=== PATIENT | female | born 1940 | race Caucasian/White ===

== ENCOUNTER 2024-03-18 08:16 | Day surgery (SDC) | payer MEDICARE, OTHER, SELFPAY ==
[2024-03-18] VITALS (9 sets, daily range): BP systolic 103–125; BP diastolic 34–107; BMI 32.3
--- NOTE | 2024-03-18 10:08 | ITS.CL.CATH ---
Medical Transcription - Catheterization
Cardiac Catheterization
Procedure Report:
CARDIAC CATHETERIZATION REPORT
Date of Procedure: 03/18/2024
Referring: Que Martinez MD
Indication: Critical aortic stenosis
HEMODYNAMIC DATA
AO: 132/60
LV: Not done
PCWP: 22
PA: 49/20
RV: 49/14
RA: 12
Oximetry: Ao 97%, PA 78%, IVC 74%, SVC 77%, cardiac output 5.7, cardiac index 3.0
LEFT VENTRICULOGRAPHY: Not performed
CORONARY ANGIOGRAPHY
Dominance: Right
Left Main: Normal
LAD: Normal
Circumflex: Normal
RCA: Normal dominant vessel
Closure Device: None-the procedure was performed via the right radial artery and right femoral vein. The Fabricio's test was normal prior to the procedure.
Radiation dose (mGy): 270
DAP (cm2.Gy): 24.5
Fluoroscopy time: 8.8 minutes
CONCLUSIONS:
1. Elevated left heart filling pressures with mild to moderate pulmonary hypertension
2. Normal coronary arteries
RECOMMENDATIONS: Proceed with TAVR evaluation for critical aortic stenosis (mean gradient by echo 71 mmHg)
Copy to: Que Martinez MD, Radha Malloy MD
Musa Santiago MD, [facility], [facility]
[2024-03-18] MEDS: NSS 1000 IV (11:15)
--- NOTE | 2024-03-18 15:32 | CONSULT.STRU ---
Consultation
-
Date/Time Consultation Requested: 03/18/2024
Date/Time Consultation Performed: 03/18/2024
Requesting Provider: Musa Santiago MD
Performing Provider: LEONARD Gonsales
Reason for Consultation: Aortic stenosis/ TAVR evaluation
Patient History
Physicians
Family Physician: Gama
Outpatient Wall And Floor Tiler: Jose Reed
Primary Wall And Floor Tiler: Belia
History of Present Illness
Mrs. Beckford is a very pleasant 83yo female with known history of aortic stenosis that has now progressed to the severe range. Symptoms are difficult to illicit as she leads a very sedentary life. She has arthritis in her left knee and walks with
a crutch. She denies progressive CABALLERO, PND, orthopnea, palpitations, near syncope or lightheadedness. Her most recent echocardiogram shows aortic valves leaflets are thickened and severely restricted consistent with severe aortic stenosis with a mean
gradient of 55 mmHg, mild aortic insufficiency. Cardiac cath today with elevated left heart filling pressures with mild to moderate pulmonary hypertension. Normal coronary arteries
Reviewed the pathophysiology of aortic stenosis with the patient. Explained the treatment options of SAVR and TAVR. Explained the TAVR evaluation process including follow up BMP, CT TAVR scan, CT surgery consult and Heart Team discussion. Provided
with script for BMP next week, script and appointment for CT TAVR, Consult appointment with Dr. Grey and a copy of the TAVR education booklet with contact information. Allowed for and answered questions.
Past Medical History
Past Medical History: HTN, Valvular Disease and Other (Arthritis, Obesity)
Past Surgical History
Past Surgical History: (x2) and Orthopedic (knee surgeries)
Dental History
Regular Dental Care: Dr. Daren Chawla ([place], [place])
Family History
Mother: at Age (75yo, emphysema)
Father: at Age (89yo, unknown cause)
Social History
Alcohol: None
Drug: None
Tobacco: Non-Smoker
Personal: Single
Living: Alone
Employment: Retired (teacher)
Allergies
Allergy/AdvReac Type Severity Reaction Status Date / Time
No Known Allergies Allergy Verified 03/18/24 08:51
Home Medications
�Medication �Instructions �Recorded �Confirmed �Type
aspirin 81 mg chewable tablet 81 mg PO DAILY 03/18/24 03/18/24 History
losartan 50 mg-hydrochlorothiazide 1 tab PO DAILY 03/18/24 03/18/24 History
12.5 mg tablet
STS%
STS %: 3.1%
Review of Systems
-
History Source: Patient
General: Reports No Symptoms
HEENT: Reports No Symptoms
Respiratory: Reports No Symptoms
Cardiac: Reports No Symptoms
Abdomen/GI: Reports No Symptoms
: Reports Incontinence (receives Botox treatments)
Musculoskeletal: Reports Joint Pain (arthritis, knee surgery)
Skin: Reports No Symptoms
Neurological: Reports No Symptoms; Denies CVA, TIA, Headaches or Syncope
Vascular: Reports No Symptoms
Physical Exam
Vital Signs
Temp 97.0 F 03/18/24 08:48
Temp route: Temporal 03/18/24 08:48
Pulse 66 03/18/24 12:45
Resp Rate 23 03/18/24 12:45
Blood pressure 115/34 03/18/24 12:00
Blood pressure extremity used: Left upper arm 03/18/24 08:39
Position: Lying 03/18/24 08:39
MAP (cuff-Van Monitor) 52 03/18/24 12:00
SaO2 98 03/18/24 13:00
Oxygen Mode of Delivery Room air 03/18/24 13:00
Can the patient verbally communicate their pain? Yes 03/18/24 13:00
Actual Weight 85.275 kg 03/18/24 08:30
Body Mass Index (BMI) 32.3 03/18/24 08:30
Labs
03/11/2024:
BUN/Creat: 17/0.79
GFR: 74
H/H: 12.0/36.3
Diagnostic Studies
Echocardiogram 03/07/2024
CONCLUSIONS
Normal chamber sizes
Normal right and left ventricular systolic function
Severe aortic stenosis. Moderate aortic insufficiency
Mild elevation the right ventricular systolic pressure
Indications:
Nonrheumatic aortic (valve) stenosis with insufficiency
Rhythm: Sinus
Portable Study:
Technical Quality: Fair to poor
Contrast: None
BP: 120 / 70
PROCEDURE
A complete Transthoracic Echocardiogram was performed utilizing two-dimensional
evaluation with color flow and spectral Doppler analysis.
FINDINGS
Left Ventricle
Normal size systolic function estimated ejection fraction 65-70%
Right Ventricle
Normal size and systolic function
Left Atrium
Normal size
Right Atrium
Normal size
Mitral Valve
Normal mitral valve
Aortic Valve
Aortic valves leaflets are thickened and severely restricted consistent with
severe aortic stenosis with a mean gradient of 55 mmHg,, mild aortic
insufficiency
Tricuspid Valve
Normal tricuspid valve trace to mild tricuspid regurgitation right ventricular
systolic pressure mildly elevated at 36 mmHg
Pulmonic Valve
Pulmonic valve not well visualized
Pericardium\\Pleura
No pericardial effusion
Aorta
Normal aortic root size
Other Finding
Inter atrial septum intact inferior vena cava normal size greater than 50%
respiratory variation
MEASUREMENTS (Male / Female) Normal Values
2D ECHO
LV Diastolic Diameter PLAX 4.2 cm 4.2 - 5.9 / 3.9 - 5.3 cm
LV Systolic Diameter PLAX 2.9 cm
IVS Diastolic Thickness 0.8 cm 0.6 - 1.0 / 0.6 - 0.9 cm
LVPW Diastolic Thickness 0.8 cm 0.6 - 1.0 / 0.6 - 0.9 cm
LV Relative Wall Thickness 0.4
RV Internal Dim ED PLAX 2.9 cm
LVOT Diameter 2.0 cm
M-MODE
Aortic Root Diameter MM 3.2 cm
LA Systolic Diameter MM 4.0 cm
LA Ao Ratio MM 1.2
AV Cusp Separation MM 1.0 cm
DOPPLER
AV Peak Velocity 455.6 cm/s
AV Peak Gradient 83.0 mmHg
AV Mean Gradient 55.5 mmHg
AV Velocity Time Integral 119.6 cm
LVOT Peak Velocity 134.6 cm/s
LVOT Peak Gradient 7.2 mmHg
LVOT Velocity Time Integral 36.1 cm
LVOT Stroke Volume 114.6 cm3
LVOT Stroke Volume Index 57.5 ml/m2 empty
LVOT Cardiac Index 3161.2 cm3/min
AV Area Cont Eq vti 1.0 cm2
AV Area Cont Eq pk 0.9 cm2
Mitral E Point Velocity 109.1 cm/s
Mitral A Point Velocity 71.9 cm/s
Mitral E to A Ratio 1.5
TR Peak Velocity 286.3 cm/s
TR Peak Gradient 32.8 mmHg
Right Ventricular Systolic Press 35.8 mmHg
Cardiac Catheterization 03/18/2024
HEMODYNAMIC DATA
AO: 132/60
LV: Not done
PCWP: 22
PA: 49/20
RV: 49/14
RA: 12
Oximetry: Ao 97%, PA 78%, IVC 74%, SVC 77%, cardiac output 5.7, cardiac index 3.0
LEFT VENTRICULOGRAPHY: Not performed
CORONARY ANGIOGRAPHY
Dominance: Right
Left Main: Normal
LAD: Normal
Circumflex: Normal
RCA: Normal dominant vessel
Closure Device: None-the procedure was performed via the right radial artery and right femoral vein. The Fabricio's test was normal prior to the procedure.
Radiation dose (mGy): 270
DAP (cm2.Gy): 24.5
Fluoroscopy time: 8.8 minutes
CONCLUSIONS:
1. Elevated left heart filling pressures with mild to moderate pulmonary hypertension
2. Normal coronary arteries
RECOMMENDATIONS: Proceed with TAVR evaluation for critical aortic stenosis (mean gradient by echo 71 mmHg)
Exam
General: Well Developed, Well Nourished, No Apparent Distress and Comfortable
HEENT: Normocephalic and Moist Mucous Membranes
Neck: Trachea Midline
Respiratory: Clear; Negative Wheezes, Crackles or Rhonchi
Cardiac: S1/S2, Regular Rhythm and Murmur (Grade III/ systolic murmur)
GI: Soft, Non Tender, Non Distended and Normal Bowel Sounds
Rectal: Deferred by Provider
Skin: Warm and Dry
Neuro: AO x 3 and Nonfocal/Grossly Intact
Extremities: Lower Level Edema (trace bilateral LE) and Pulses (+2 dp pulses bilaterally)
Lymph: No Lymphadenopathy
Psych: Calm
Assessment / Plan
-
Procedure Type:�Isolated AVR
PERIOPERATIVE OUTCOME ESTIMATE %
Operative Mortality 3.1%
Morbidity & Mortality 7.46%
Stroke 1.26%
Renal Failure 1.37%
Reoperation 2.39%
Prolonged Ventilation 3.69%
Deep Sternal Wound Infection 0.059%
Long Hospital Stay (>14 days) 3.7%
Short Hospital Stay (<6 days)* 37.2%
Severe Aortic stenosis:
��������������� Continue evaluation for TAVR
��������������� BMP 03/24/2024 at [facility]
��������������� CT TAVR scan 03/28/2024 0945 at
��������������� CT surgery consult with Dr. Grey 04/08/2024
��������������� Heart team discussion at [facility]
Dental Clearance (Dr. Chawla )
Data Reviewed
-
EKG: Report Reviewed by me
Used Car Salesperson: Discussed with Physician
Echo: Discussed with Physician
Labs: Labs Reviewed by me
Old Records: Reviewed (echocardiogram, Cardiology office notes)
Total Time Spent with Patient (in minutes): 30
== END 2024-03-18 13:20 | disposition home or self-care (01) ==
LOC: CATH 08:16
PROVIDERS: ATTENDING PHYSICIAN Internal Medicine Cardiovascular Disease; FAMILY PHYSICIAN Internal Medicine; OTHER PHYSICIAN Internal Medicine Cardiovascular Disease
DX: I35.0 Nonrheumatic aortic (valve) stenosis (principal); I27.20 Pulmonary hypertension, unspecified; R06.02 Shortness of breath; I10 Essential (primary) hypertension; E66.01 Morbid (severe) obesity due to excess calories; Z68.41 Body mass index [BMI] 40.0-44.9, adult; Z79.82 Long term (current) use of aspirin
CPT/HCPCS: 93456; C1894; Q9967

== ENCOUNTER → 2024-03-28 09:11 | Outpatient (REF) | payer MEDICARE, OTHER, SELFPAY | LOC: RAD 09:11 | PROVIDERS: ATTENDING PHYSICIAN Nurse Practitioner Adult Health; FAMILY PHYSICIAN Internal Medicine | DX: I35.0 Nonrheumatic aortic (valve) stenosis (principal) | CPT/HCPCS: 74174; 75572; Q9967 ==

== ENCOUNTER 2024-04-17 09:12 | Inpatient (IN) | payer MEDICARE, OTHER, SELFPAY ==
[2024-04-10 12:03] VITALS: BMI 32.5
[2024-04-10 13:03] LABS: Urine Albumin Negative (Neg - Trace); Urine Bilirubin Negative (Negative); Urine Character Slightly Cloudy (Clear); Urine Color Yellow; Urine Glucose Negative (Negative); Urine Ketone Negative (Negative); Urine Leukocyte 1+ (Negative); Urine Nitrite Negative (Negative); Urine Occult Blood Negative (Negative); Urine Urobilinogen Negative (Neg - 1+)
[2024-04-10 13:13] LABS: % Basophils 1.3 % (0-2); % Eosinophils 8.5 % (0-6); % Immature Granulocytes 0.3 % (0-0.5); % Lymphocytes 26.3 % (20.5-51.1); % Monocytes 6.3 % (1.7-9.3); % Neutrophils 57.3 % (42.2-75.2); Absolute Basophils 0.1 10^3/uL (0-0.2); Absolute Eosinophils 0.6 10^3/uL (0-0.7); Absolute Lymphocytes 1.8 10^3/uL (1.2-3.4); Absolute Monocytes 0.4 10^3/uL (0.1-0.6); Hematocrit 35.1 % (37.0-47.0); Hemoglobin 12.3 g/dL (12.0-16.0); Mean Corpuscular Hgb 31.9 pg (27.0-31.0); Mean Corpuscular Volume 90.9 fL (81.0-99.0); Nucleated Red Blood Cells % 0 %; Platelet Count 252 10^3/uL (130-400); Red Blood Cell Count 3.86 10^6/uL (4.20-5.40); Red Cell Dist. Width 13.6 % (11.5-14.5)
[2024-04-10 13:14] LABS: APTT 26.3 Sec (23.4-35.0); INR 1.06; PT 13.8 Sec (11.4-14.6)
[2024-04-10 13:18] LABS: ALT (SGPT) 11 U/L (0-35); AST (SGOT) 24 U/L (14-36); Albumin 4.1 g/dl (3.5-5.0); Alkaline Phosphatase 71 U/L (38-126); Blood Urea Nitrogen 18 mg/dl (7-17); Carbon Dioxide 27 mmol/L (22-30); Chloride 105 mmol/L (98-107); Direct Bilirubin 0.2 mg/dl (0.0-0.4); Estimated Creatinine Clearance 48 ml/min; Glucose 91 mg/dl (70-99); Potassium 4.1 mmol/L (3.5-5.1); Sodium 138 mmol/L (135-145); Total Protein 6.8 g/dl (6.3-8.2); eGFR > 60.00
[2024-04-10 13:20] LABS: Urine Bacteria Moderate (Negative); Urine Red Blood Cell 0-2 /HPF (0-2); Urine White Cell 30-40 /HPF (0-5)
[2024-04-10 13:26] LABS: NT-proBNP 256 pg/ml
[2024-04-10 14:13] LABS: Glycohemoglobin (HgbA1c) 5.3 % (4.0-5.6)
--- NOTE | 2024-04-10 14:26 | CM ---
Chart reviewed. Met with the patient and her brother and sister in law in [facility]. Reviewed preoperative and postoperative instructions and restrictions. Gave patient 2 soaps, along with showering guidelines. Patient is agreeable to a home visit
by CT Transitional RN. Patient is independent of ADLS, lives alone in a [address] [facility], [address] [facility], ambulates with a crutch and also has a RW at home that she does not use. Patient isn't sure if she will be going to her son's house in [place] or
home with her daughter who will be visiting from [place]. Plan is for the patient to return home with her daughter or to her son's house with CT Transitional RN. CM to follow
[2024-04-17] VITALS (27 sets, daily range): BP systolic 72–144; BP diastolic 34–75; BMI 30.7
--- NOTE | 2024-04-17 10:43 | W.CVOR.SURPR ---
CVOR Surgeon Immed Pre Op
-
I have examined this patient prior to performance of the scheduled procedure.
The patient's condition is unchanged from the time of the dictated/written History and
Physical and the patient is able to undergo the scheduled procedure.
TF TAVR
Full Rescue
[2024-04-17] MEDS: ANCEF 10 IV ×2 (11:04→15:49)
[2024-04-17 12:50] LABS: ACT-LR - POC > 397 Seconds (116-155)
--- NOTE | 2024-04-17 13:17 | W.PN.CT.SURG ---
CT Surgery Operative Note
-
OPERATIVE REPORT
Preoperative Diagnosis: Severe aortic valve stenosis, symptomatic
Postoperative Diagnosis: Same
Procedure(s) Performed: Right trans femoral TAVR with a 26 mm mm Medtronic Evolut FX device with balloon valvuloplasty of the aortic valve
Date of Procedure: 04/17/2024
Comorbidities:
1. Severe symptomatic aortic stenosis
2. Obese
3. Hypertension
Cardiac Surgeon: Stewart Joyce MD, MS
Delivery Table Feeder: Everardo Santiago MD
Anesthesia: Conscious Sedation, Local
EBL: 100cc
Products: none
Implant: Medtronic Evolut FX, 26 mm TAVR valve SN: [id number]
Indication(s) for Procedures: 83-year-old female with severe aortic stenosis. Symptomatic. CT-TAVR protocol revealed acceptable anatomy for a self-expanding TAVR valve. Multidisciplinary team discussion between interventional cardiology,
cardiology, and cardiac surgery all deemed TAVR valve appropriate.
Start time: 1209hrs
Deployment time: 1253hrs
End time: 1312hrs
Radiation Dose (mGy): 977.83
DAP (cm2.Gy): 76.5634
Fluoroscopy time (minutes): 18
Contrast volume (ml): 123
TAVR gradient (mmHg): 8mmHg
Heparin Dose: 6000units
Protamine Dose: 40mg
Final Valve Positioninmm:4mm
LVEPD 18mmHg
Findings: Preoperative LVEF was 60% and was 70% following TAVR without inotropic support and was actually quite hyperdynamic with a kissing ventricle. Function was overall normal without regional wall motion abnormalities or dyskinesia. The aortic
valve was well seated with only trace PVL. The patient did not require pacing postoperative however was in a bradycardic rhythm possibly heart block. Therefore the temporary pacing wire was left in place at a backup of 30 bpm. There was successful
placement of 26 mm Evolut FX TAVR valve without acute complications. Of note, her root was quite horizontal and so there is some difficulty with getting the appropriate height in the left coronary cusp side, a total of 5 recaptures/deployments were
performed at a pacing rate of 180 bpm in order to obtain a successful deployment.
Access:
1. Device -right common femoral artery, perclose x 2
2. Pigtail -left common femoral artery + 6Fr angioseal, slightly higher stick than anticipated
3. Transvenous Pacer -left common femoral vein
Description of Procedure: The patient was taken to the manager cardiac cath. Their identity and procedure to be performed were verified and they were positioned supine on the manager cardiac cath table. Induction via conscious sedation with local analgesia. The patient was
then prepped and draped from chin to thigh in a sterile fashion. A preoperative time-out was performed with all members of the team present. Using fluoroscopy, bilateral femoral heads and their margins were identified. Arterial and venous access
were done with a micropuncture needle with Seldinger technique. Test pacing revealed capture with excellent threshold. Angiography confirmed proper puncture site and femoral artery integrity. Two Per-Close devices were used on the TAVR side. An AL1
catheter was used to deliver a extrastiff wire and insertion of the working sheath. An AL1 catheter with a straight stiff wire was used to access the LV. An LVEDP was measured here. Was found to be 18. The valve was prepped and mounted on to the
device carrier. An ACT of >250 was achieved. We verified x 3 under fluoroscopy that the valve was mounted correctly with paddles in appropriate position. A 18 mm balloon was then inserted and across the [place] aortic valve and under rapid pacing at
180 bpm the balloon was then inflated with good effect for the valvoplasty. We than set our parameters to achieve a co-planar view with the pigtail positioned in the NCC. We exchanged the sheath for the inline sheath. We advanced the device with
it's in-line sheath into the descending thoracic aorta and over the arch into the root and positioned across the aortic valve. Contrast fluoroscopy was used to visualize the prosthesis across the valve. We performed a quick pre-deployment time out.
We verified positioning based on the pigtail and gentle contrast puffs. The valve was slowly deployed to just before annular contact. We paused here and verified positioning in our cusp overlap view. Due to the angulation of the aortic arch, the
left coronary cusp side was too high at approximately 0 mm and so recapture was performed. A total of 5 recaptures and deployment attempts were performed. Eventually we opted to deploy slightly deeper on the noncoronary cusp side and help that
with the valve recanting following deployment it would right itself. The pacer was turned on and we continued deployment to annular contact. At this point the valve was functioning and pacing was stopped. We slowly continued to deploy the valve
until the crowns and paddles were free from the device. The deployment device was withdrawn into the descending thoracic aorta while maintaining wire access across the valve. A transthoracic echocardiogram was performed and there was no significant
paravalvular leak and on echocardiography, the valve did not appear to be overly deep. The pigtail was re-positioned at the level of the crown of the valve and angiography revealed excellent placement and seating of the valve at the annulus. The
device was removed from the groin as we cinched down the perclose devices while maintaining wire access. There was acceptable hemostasis. The pigtail was repositioned into the descending/abdominal and runoff aortogram was performed. There was no
significant stenosis or dissection of the bilateral iliofemoral systems with excellent runoff to the SFAs. All wires were removed and perclose snugged and cut. There was acceptable hemostasis of bilateral groins.
All instrument, sponge, and needle counts were confirmed to be correct x 2 at the end of the operation. The patient was transferred to the cardiac intensive care unit in stable condition.
I, Dr. Stewart Joyce, was present, scrubbed for, and performed all critical elements of this procedure.
Stewart Joyce MD, MS
Cardiothoracic Surgeon
[facility]
This operative dictation was created using the [employer] dictation system. Please excuse any grammatical, typographical, or 'sound alike' errors
--- NOTE | 2024-04-17 13:40 | ITS.CL.TAVR ---
Balcony Worker - TAVR Report
TAVR PRocedure
Procedure Report:
TRANSCATHETER AORTIC VALVE REPLACEMENT REPORT
�
Date: 04/17/2024
Referring physician: Que Martinez MD
Operators: Musa Santiago MD, Stewart Joyce MD
�
Procedure: Conscious sedation was provided by anesthesia. Using a micropuncture technique, 6F LFV and LFA sheaths were placed. Injection into the LFA sheath was performed to confirm a common femoral artery puncture site. The puncture site was in
the high BATTERY CONTAINER FINISHING HAND. A transvenous pacemaker was placed into the RV apex with excellent thresholds. A pigtail catheter was advanced to the aortic root and low-volume injections performed to identify a co-planer angle for valve deployment. Access was then
obtained in the RFA using the micropuncture technique. Injection into the RFA sheath was performed to confirm a common femoral artery puncture site. Entry was in the mid R BATTERY CONTAINER FINISHING HAND. Heparin 3000 units was administered. At this point, two Perclose
sutures were preset using the preclose technique. We then placed an 8 [place] sheath. A 14 [place] Cook sheath was exchanged into the RFA.Heparin 3000 units was administered. The valve was crossed with an��AL 1 diagnostic catheter and a straight wire.
A double curve Lunderquist wire was advanced into the LV apex through a pigtail catheter. The 14 F sheath was removed and exchanged for a 26 mm Medtronic Evolute pro valve with in-line sheath. The valve was carefully advanced around the aortic arch
and across the valve. Placement required multiple recaptures due to the horizontal aortic root and the valve sitting on the greater curvature of the aorta. Once ideal valve positioning was confirmed, the valve was very slowly deployed with
ventricular pacing at 140�180 per minute. Following valve deployment, the patient had some unclear degree of AV block with heart rate in the 45-50 range. The result was evaluated with both aortography and echocardiography which demonstrated no
detectable AI with a gradient of 7 mmHg. The valve deployment system was removed and hemostasis achieved with the 2 Perclose sutures. Angiography of the right iliofemoral system was accomplished and showed no evidence of significant dissection or
perforation with good runoff below the femoral bifurcation. The LFA sheath was removed with a 6 [place] Angio-Seal. The pacemaker was secured in place and the patient transferred to the IVU with backup ventricular pacing.
�
Radiation
Dose (mGy): 977
DAP (cm2.Gy): 76.5
Fluoroscopy time: 18 minutes
�
�
Conclusion: Successful placement of 26mm Medtronic evolute Pro TAVR using a right percutaneous transfemoral approach. A temporary pacemaker was left in place and this patient will be at significant likelihood of requiring permanent pacemaker
placement within the next 24 hours if her rhythm does not completely return to normal
�
Musa Santiago M.D.
�
Copy : Que Martinez MD, Radha Malloy MD
�
�
�
[2024-04-17] MEDS: LEVOPHED 250 IV (14:14)
[2024-04-17 14:31] LABS: ACT-LR - POC > 397 Seconds (116-155)
--- NOTE | 2024-04-17 17:03 | ITS.CL.PACE ---
[employer] - Pacemaker Implant
Pacemaker Implant
Procedure Report:
Left Bundle Branch pacing dual chamber Permanent Pacemaker Placement:
83 yrs old woman with severe and chronic LBBB s/p TAVR and complete heart block now s/p temp wire
Indications:
Complete heart block.
Date of the Procedure: 04/17/24
Pre-Operative Diagnosis: Complete heart block.
Post-Operative Diagnosis: Complete heart block.
Procedure Performed: LEFT BUNDLE BRANCH PACING WITH DUAL CHAMBER PERMANENT PACEMAKER IMPLANTATION.
Surgeon:
Laly Mcgee MD
Anesthesia:
See anesthesia records
Detailed Description of the Procedure:
The patient was identified using hospital identification and informed consent obtained for the procedure. The risks were explained to the patient and the family including, but not limited to: Bleeding, infection, arrhythmia, stroke,
vascular/cardiac/lung puncture, surgery, pacemaker dependency/device malfunction. All questions were answered.
Anesthesia service provided sedation as reported separately. Antibiotics administered IV for risk of bacterial colonization. After obtaining informed and written consent, the patient was brought to the electrophysiology laboratory.
The initial rhythm was V paced rhythm at 60 bpm.
A timeout was performed immediately before the procedure. The left chest was prepped from the nipple to the angle of the jaw with chlorhexidine, and draped following sterile technique in usual routine.�
A surgical pause and time out was performed immediately prior to the procedure with review of her medical history, recent labs, allergies and medications with site of procedure identified and consent noted in the chart. Antibiotics pre operatively
given. All team members concurred.
The procedure site was meticulously prepared with surgical scrub and allowed to dry with no pooling. Sterile draping was applied to cover the procedure site. The image intensifier was draped with sterile bag and positioned over the patient.
The left infraclavicular region was prepped and draped in the usual sterile fashion. Local anesthesia was administered subcutaneously using 1% lidocaine / Bupivacaine. The left upper extremity venogram was done and the axillary route identified.
There was patent subclavian vein.
Following infiltration with local anesthetic, the axillary vein was accessed under fluoroscopy and the venogram guidance using the micro-puncture apparatus. The guide wires were advanced to the inferior vena cava (IVC) under flouro guidance.
A subcutaneous pocket was created with blunt dissection and use of electrocautery. Hemostasis was excellent.
Attention then was turned to the left bundle branch pacing lead. The guide wire was advanced to the RA and was advanced to the RV. The preformed curved long hemostatic peel away HIS sheath was advanced into the RV cavity. A left bundle pacing wire
was advanced into the sheath to the tip with ventricular signals noted with unipolar manner. The HIS location was identified under guidance of the flouroscopy and the pacing wire signals. The sheath with the pacing lead was moved deeper into the RV
cavity on the septum at a more inferior and distal to the HIS signals.
Once adequate signals were noted on the electrograms of the pacing lead in the sheath with W pattern signals on the RV septum, the lead was advanced and clockwise turns were done under fluoroscopic guidance. The septum was engaged and the lead was
paced intermittently after every 2-3 turns. The Impedance of the lead was measured that remained stable around 1000 Ohm. There was high threshold and poor sensing noted. The decision was made to remove the lead and relocate to another locations.
Another septal location was identified with adequate signals noted on the pacing leads and good flouroscopic location. There was sheath approximation confirmed on URDU view and the pacing lead was advanced with clockwise turns into the septal
location. The septum was successfully engaged. The lead was paced and septal pacing was noted. The sheath was placed again to the septum and the lead was advanced 2-3 turns with pacing with each advancement. The ventricular capture was monitored
throughout and the captures gradually changed from RV pacing to non-selective pacing to LBB pacing with R wave on V1.
With RBBB pattern noted on the pacing lead, it was decided to accept the location as optimal location. The long guiding sheath was cut and removed from the RV without change in lead position, impedance, sensing, or capture. The lead was sutured to
the underlying pectoralis fascia with 0-silk stitches.
The RA lead was anchored in the right atrial appendage with passive fixation using tines. There was excellent sensing, pacing, and impedance from the leads, with no diaphragmatic stimulation at 10 V output.�Bovie cautery, antibiotics, and
fluoroscopy were used.
The leads were attached to the pulse generator in standard configuration with acceptable sensing and threshold parameters. The pocket was irrigated with antibiotic solution; the pocket was inspected with no active bleeding noted. The device and the
leads were placed in the pocket.
A Tyrx pouch was placed around the device and the leads.
Deep subcutaneous tissues were closed with 3 layers of 2-0 V loc sutures; and the dermis was reopposed using a running 4-0 VLoc subcuticular suture. Sponge counts / sharp counts were appropriate.
Procedure End:
The procedure was tolerated well. Aquacel bandaged was applied. A pressure dressing was applied.
Estimated Blood loss:
5 cc
Specimens Removed:
No cultures and no specimens were obtained. No intraoperative pathology was identified.
Urine output:
None
Packs / Drains/ Tubes:
None
Instrument / Sponge Count Correct:
Yes
Complications of the Procedure:
None
Condition of Patient at Time of Transfer:
Hemodynamically stable with no neurological or vascular compromise.
Device information:�
Generator: [employer]; Model: W1DR01; Serial # [id number]�
����������� Atrial Lead: Medtronic; Model: 4574-45; Serial # [id number]�
Measured data in the right atrium was sensing of 3.1 mV, impedance of 570 ohms and threshold of 0.75 V at 0.4ms�
����������� LBB pacing lead: Medtronic; Model: 3830-69; Serial # [id number]
����������������������� Measured data on the RV lead was sensing of 20 mV, impedance of 874 ohms and threshold of 0.75 V at 0.4ms
PROGRAMMING PARAMETERS:�
Calvin parameter settings were DDDR 60-130 �
����������� Paced AV interval: 180ms
����������� Sensed AV interval: 150 ms.
����������� Rate Adaptive A-V Interval: off
Summary:
Successful implantation of MRI compatible LBB pacing Medtronic dual chamber pacemaker.
Results/Recommendations:
-Please follow up CXR�
1. Please provide patient with adequate pain control�
Instructions to be given to patient:�
- Please follow up with [facility] at [address] [place] [address] ([phone]) to get your wound checked in 2 weeks of your discharge. Then follow with
- Do not wet incision site until after it is evaluated at cardiology clinic. No baths or showers until then. Sponge baths / showers are OK but dab dry the dressing after it is wet.�
- Allow 'steri strips' to fall off on their own�
- Do not lift left elbow above shoulder, particularly with sudden jerking movements, for 1 month�
- Do not lift anything weighing more than 5 pounds with the left arm for 1 month�
- If you notice any fevers, shortness of breath, lightheadedness, chest pain, or worsening swelling in the wound site, please contact the arrhythmia clinic, contact your awning finisher, or present to the hospital for evaluation.�
Laly Mcgee MD
Electrophysiology
[2024-04-17] MEDS: TYLENOL 650 MG PO (18:09)
--- NOTE | 2024-04-17 19:13 | PTCARENOTE ---
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 Pt c/o left arm pain, given tylenol (pt adamant that she not receive anything stronger). Left anterior chest with pressure dressing, bilateral femoral sites with dry
and intact dressings, no sign of bleeding or hematoma. Pt has no desire to void, bladder scanned for 43mls only. Pt alert and oriented, neuro check unremarkable and unchanged from prior assessments. Telemetry shows ventricular paced rhythm, SBP's
102-115, norepi infusion at 1.5mcgs. Pt on bedrest until 20:00, plan for CXR tonight.
[2024-04-17] MEDS: ROXICODONE 2.5 MG PO (19:14)
--- NOTE | 2024-04-17 21:17 | PTCARENOTE ---
Pt received start of shift, HR V-paced. B/l groin sites CDI, soft, no hematoma. Neuro intact, WNL. L chest wall dressing CDI. Pt c/o pain 8/10 at L chest incision site. Pt agreeable to taking Navin 2.5mg after tylenol ineffective. After navin
administration, pain to 4/10 (See MAR). Levo infusion off @2029. Pt on 2L NC for comfort. Pt denies any CP outside of incision site, SOB, lightheadedness, or dizziness. Informed to notify RN if any changes, call rudolph within reach.
[2024-04-17] MEDS: ANCEF 5 IV (23:00)
[2024-04-18] VITALS (9 sets, daily range): BP systolic 97–133; BP diastolic 45–64; PULSE 66; O2SAT 96; BMI 31.7
[2024-04-18 03:37] LABS: Hematocrit 32.5 % (37.0-47.0); Hemoglobin 11.1 g/dL (12.0-16.0); Mean Corp Hgb Conc. 34.2 g/dL (33.0-37.0); Mean Corpuscular Hgb 32.6 pg (27.0-31.0); Mean Corpuscular Volume 95.3 fL (81.0-99.0); Mean Platelet Volume 9.9 fL (7.4-10.4); Platelet Count 165 10^3/uL (130-400); Red Blood Cell Count 3.41 10^6/uL (4.20-5.40); Red Cell Dist. Width 13.4 % (11.5-14.5); White Blood Cell Count 9.9 10^3/uL (4.8-10.8)
[2024-04-18 04:02] LABS: Blood Urea Nitrogen 20 mg/dl (7-17); Calcium 9.3 mg/dl (8.4-10.2); Carbon Dioxide 23 mmol/L (22-30); Chloride 103 mmol/L (98-107); Estimated Creatinine Clearance 43 ml/min; Glucose 121 mg/dl (70-99); Potassium 4.6 mmol/L (3.5-5.1); Sodium 132 mmol/L (135-145); eGFR > 60.00
--- NOTE | 2024-04-18 04:15 | W.PN.CT ---
Today's Communication / Plan
-
-pod #1
-no significant issues overnight
-Tylenol with low-dose Maranda for incisional pacer pain. Pressure dressing is on
-in nsr with V-pacing 60s overnight
-Echo today
-current meds (ASA, Hyzaar)
-encourage IS, OOB, ambulate
-possible d/c
Assessment / Plan
-
- Severe symptomatic - s/p Right trans femoral TAVR with a 26 mm mm Medtronic Evolut FX device with balloon valvuloplasty of the aortic valve on 04/17/24, pod #1
- Acute LBBB with CHB post TAVR - s/p successful implantation of MRI compatible LBB pacing Medtronic dual chamber pacemaker by Dr. Mcgee on 04/17/24
- HTN/HLD
- Class 1 obesity (BMI 30)
- AF
- Osteoarthritis, severe - walks with cane/crutch
- Plantar fascitis
- Botox injection for incontinence
Discussed patient care with: Nursing and Care Team
Subjective
-
Date of Service: April 18, 2024
Objective Data
-
PT 13.8 Sec (11.4-14.6) 04/10/24 12:17
INR 1.06 04/10/24 12:17
APTT 26.3 Sec (23.4-35.0) 04/10/24 12:17
Vital Signs
Vital Signs
Temp Pulse Resp BP Pulse Ox
97.8 F 66 18 92/63 95
04/17/24 23:00 04/17/24 23:15 04/17/24 23:00 04/17/24 23:00 04/17/24 23:00
CT Intake/Output/Weight
04/17/24 04/17/24 04/18/24
06:59 18:59 06:59
Intake Total 960 / 960
Output Total 375 / 375
Balance 585 / 585
SaO2: 95
Physical Exam
-
General: Awake and AOx3
Cardiovascular: Regular rate & rhythm, No Murmurs and No Rub
Respiratory: Decreased Breath Sounds
Incision: Other (groins are cdi, soft, nontender, no hematoma b/l)
Extremities: Edema +1 (2+ DPs b/l)
Data Reviewed
-
Lab Results: Results Reviewed
Medications: Active Meds Reviewed
Chest X-Ray: Report Reviewed and Image Reviewed
ECG: Report Reviewed and Image Reviewed
[2024-04-18] MEDS: ANCEF 5 IV (06:21)
[2024-04-18] MEDS: TYLENOL 650 MG PO ×2 (07:43→12:20)
--- NOTE | 2024-04-18 08:01 | W.PN.ANS.POP ---
Anesthesia Post Operative
- Anesthesia Post Op Note
Vital Signs Stable-See Nursing Note: Yes
Airway Patent: Yes
Adequate Pain Control: Yes
Change in Mental Status: No
Current Postoperative Nausea & Vomiting: No
Anesthesia Complications: No
General Anesthetic Recall: No
Unplanned Admission: No
Post Op Hydration Adequate: Yes
- -
Pt awake and alert- resting comfortably with no anesthesia related c/o at time of post op visit.
--- NOTE | 2024-04-18 08:26 | W.PN.CD ---
Today's Communication / Plan
-
echo today
post pacemaker care info for discharge
Discharge later today after echo
Impression / Plan
-
Severe symptomatic -->s/p Right trans femoral TAVR( 26 mm mm Medtronic Evolut FX) with balloon valvuloplasty of the aortic valve on 04/17/24
-echo today for discharge
CHB - s/p successful implantation of MRI compatible LBB pacing Medtronic dual chamber pacemaker by Dr. Mcgee on 04/17/24
- HTN chronic controlled continue current medications
- Class 1 obesity (BMI 30)
- AF---per record but she denies and not on any DOAC, Sinus here
Physical Exam
Vital Signs/Labs
Vital Signs
Temp Pulse Resp BP Pulse Ox
97.4 F 63 18 101/53 95
04/18/24 06:50 04/18/24 03:15 04/18/24 06:50 04/18/24 03:00 04/18/24 06:50
04/17/24 04/18/24 04/19/24
06:59 06:59 06:59
Actual Weight 76.1 kg
04/18/24 03:06
04/18/24 03:06
PT 13.8 Sec (11.4-14.6) 04/10/24 12:17
INR 1.06 04/10/24 12:17
APTT 26.3 Sec (23.4-35.0) 04/10/24 12:17
04/10/24
12:17
[id number]-Mcpsbsczreg Pept 256
Physical Exam
Constitutional: No acute distress
Cardiovascular: Rhythm & rate is regular, Pedal edema is absent, JVD pressure is normal and Systolic murmur absent
Respiratory: Respiratory effort normal, Lungs clear to auscul., Wheeze Absent, Crackles Absent and Rhonchi Absent
Other: Cath Site (RFA LFA area soft without hematoma normal pulse) and Cardiac Device Site (Pacemaker site with Aquacel dressing clean dry and intact slight tenderness but no hematoma)
Data Reviewed
-
Date of Service: April 18, 2024
EKG: Tracing Personally Visualized and interpreted (04/18/24 ko goel) and Other
[2024-04-18] MEDS: HYZAAR 50-12.5 1 TAB PO (08:30)
[2024-04-18] MEDS: LOW STRENGTH ASPIRIN 81 MG PO (08:30)
--- NOTE | 2024-04-18 10:03 | W.DCSUMMARY ---
Discharge Summary
Discharge Data
Date of Admission: 04/17/24
Date of Discharge: 04/18/24
-
Pending Results: No
Hospital Course
Primary care physician: LEISA Malloy
Outpatient senior sales consultant: Que Martinez
Inpatient consultants: [facility]
Procedures:
1. TAVR
2. Medtronic dual-chamber permanent pacemaker
Primary Diagnosis:
1. Severe aortic stenosis
Secondary Diagnoses:
1. Obesity (BMI 31.7)
2. Hypertension
3. Complete heart block
HPI: 83-year-old female was electively admitted on 04/17/2024 for TAVR procedure due to severe aortic stenosis
Hospital course: Patient underwent right trans femoral TAVR #26 mm mm Medtronic Evolut FX device with balloon valvuloplasty of the aortic valve by Drs. Stewart Joyce/Everardo Santiago. Patient developed complete heart block post deployment with new left
bundle branch block. A temporary pacing wire with VVI backup was deployed via left femoral venous sheath. The heart block persist and patient returned to lab for a Medtronic permanent pacer insertion. Patient required short-term institution of
Levophed, which was quickly weaned in IVU. Chest x-ray reported no pneumothorax and echocardiogram reported an EF of 65 to 70% with AV gradients of 13/7 and mild paravalvular AI. Patient was instructed on need to inform medical providers of tissue
aortic valve replacement and importance of prophylactic antibiotics prior to dental and invasive procedures. Patient ambulated in the [place] without difficulty. Vital signs remained stable. She is stable for discharge to home.
Home medication changes:
none
Discharge Plan
-
Patient Disposition: Home (Routine Discharge)
Discharge Diagnosis/Procedures: TF-TAVR, Pacemaker implant
Condition: Good
Diet: Low Cholesterol and 2 Gram Sodium
Activity: As tolerated
Driving Restrictions: No driving for 1 week
Bathing Restrictions: OK to Shower
Others Tests: Follow Up Echocardiogram: 05/19/2024 at 12:40pm in Dr. Martinez's office
Other Services: Cardiac Rehab
Wound Care: Please do not apply lotions, creams or powders to groin areas. Please monitor for increased pain, swelling, redness or drainage. Please notify your doctor if any occur.
Specialty Instructions: Weigh Daily- Call MD for wt gain/loss 3 lbs overnight/5 lbs in 1 week
Stand Alone Forms: DC Inst - Implanted Device
Referrals:
CT Transitional Care Nurse [Outside] - in one to two days
Rashel Saxena MD [Active] - 05/16/24 1:40 pm
Radha Malloy MD [Family Provider] - in four to six weeks (Please mke an appointment in four to six weeks. )
Prescriptions:
New
acetaminophen 325 mg Tablet
650 mg PO Q4HPRN PRN (Reason: CAMPBELL, mild pain, or fever >101F) Qty: 0 0RF
oxycodone 5 mg Tablet
2.5 mg PO Q4HPRN PRN (Reason: severe pain) Qty: 10 0RF
Continued
aspirin 81 mg Tablet,Chewable
81 mg PO DAILY Qty: 0 0RF
losartan-hydrochlorothiazide 50-12.5 mg Tablet
1 tab PO DAILY Qty: 0 0RF
Discharge Orders:
Discharge Patient (As Directed); Ordered 04/18/24
Ordered By: Kristal Mooney
Discharge Date and Time
Print Language: CZECH
--- NOTE | 2024-04-18 10:48 | CM ---
Reviewed chart.. Met with Mrs. Beckford and her daughter to review discharge plans. She states she is planning on going to her son's home for a few days. [place] address is [address] [place] [address]. Mrs. Beckford will have her
mobile phone for the Transitional Care Nurse to call her to set up a home visit. Daughter states after a few days with her son, she is planning on having her go with her to [place] for awhile. She will bring her back for her follow-up
Cardiology appointment. Her son home is a three story home with three steps to enter. She states she will have a first floor set-up. She states she normally uses a crutch to ambulate, but she is planning on using a walker when she goes home. She
states she has a walker at home. She states she has a prescription plan and uses [facility]. We reviewed a home visit by the Cardiothoracic Transitional Care Nurse. She is agreeable to a home visit. Daughter states Mrs. Beckford has a
test facility engineer also in [place]. Medical work-up in progress. The discharge plan is to go to her son's home with a home visit by the Cardiothoracic Transitional Care Nurse when medically stable.
--- NOTE | 2024-04-18 14:35 | PTCARENOTE ---
Pt seen by Lizette and JANNETTE Stout. Pt had echo done. Pt seen by PT, walking in halls at a slow pace using a walker, she has a walker at home and will use it. Pt given tylenol twice for incisional pain with good relief.
Neuro checks at pt's baseline, some forgetfulness noted, pt's daughter states this happens when she is out of her own environment. Telemetry and IV devices removed. Discharge instructions reviewed with pt and her daughter regarding activity and
driving guidelines, pain management, wound care, medications, reporting cares and concerns and follow up appt's. Very good understanding verbalized. Pt escorted out via wheelchair and discharged to home with her daughter.
== END 2024-04-18 14:49 | disposition home or self-care (01) | DRG 267 ==
LOC: IVU 09:12
PROVIDERS: Internal Medicine Cardiovascular Disease; Physician Assistant Medical; ADMITTING PHYSICIAN Thoracic Surgery (Cardiothoracic Vascular Surgery); CONSULT PHYSICIAN Internal Medicine Cardiovascular Disease; FAMILY PHYSICIAN Internal Medicine
PROC: 02HK3JZ Insertion of Pacemaker Lead into Right Ventricle, Percutaneous Approach (ICD-10-PCS; 2024-04-17)
PROC: 02H63JZ Insertion of Pacemaker Lead into Right Atrium, Percutaneous Approach (ICD-10-PCS; 2024-04-17)
PROC: 02RF38Z Replacement of Aortic Valve with Zooplastic Tissue, Percutaneous Approach (ICD-10-PCS; 2024-04-17)
PROC: 0JH606Z Insertion of Pacemaker, Dual Chamber into Chest Subcutaneous Tissue and Fascia, Open Approach (ICD-10-PCS; 2024-04-17)
DX: I35.2 Nonrheumatic aortic (valve) stenosis with insufficiency (principal); Z00.6 Encounter for examination for normal comparison and control in clinical research program; I44.2 Atrioventricular block, complete; E66.9 Obesity, unspecified; I10 Essential (primary) hypertension; I44.7 Left bundle-branch block, unspecified; E78.5 Hyperlipidemia, unspecified; M19.90 Unspecified osteoarthritis, unspecified site; Z68.31 Body mass index [BMI] 31.0-31.9, adult; Z79.82 Long term (current) use of aspirin; Z79.899 Other long term (current) drug therapy
CPT/HCPCS: 93308; 33208; 33361; 36415; 71045; 71046; 80048; 80053; 81003; 81015; 82248; 83036; 83880; 85025; 85027; 85347; 85610; 85730; 86850; 86900; 86901; 86920; 87070; 87077; 87086; 87186; 93005; 93306; 93321; 93325; C1760; C1769; C1785; C1887; C1892; C1894; C1898; Q9967